=== PATIENT | female | born 1995 | race African-American/Black ===

== ENCOUNTER 2017-05-28 02:44 | Inpatient (IN) | payer MEDICAID ==
[~2017-05-28] VITALS: Ht 165.1 cm; Wt 65.8 kg
[2017-05-28] MEDS ORDERED: PRENATAL COMPLE1 TAB PO (03:24)
[2017-05-28 03:26] VITALS: BP 122/78; Ht 165.1 cm; Wt 65.8 kg
[2017-05-28 04:22] LABS: HEMOGLOBIN 12.6 g/dL (12-16); MCH 28.1 pg (26.0-34.0); MCHC 33.2 g/dL (31.0-37.0); MCV 84.8 fL (80.0-100.0); MEAN PLATELET VOLUME 11.4 fL (7.4-10.4); RBC 4.48 10x6/uL (4.00-5.40); RDW 12.6 % (11.5-14.5); WBC 9.9 10x3/uL (4.8-10.8)
[2017-05-28 04:27] LABS: APPEARANCE CLEAR (CLEAR); BILIRUBIN NEGATIVE (NEGATIVE); COLOR YELLOW (YELLOW); GLUCOSE NEGATIVE (NEGATIVE); KETONE NEGATIVE (NEGATIVE); LEUKOCYTE ESTERASE NEGATIVE (NEGATIVE); NITRITE NEGATIVE (NEGATIVE); PROTEIN NEGATIVE (NEGATIVE); RED CELLS - URINE 0-5 /hpf (0-5); SPECIFIC GRAVITY 1.015 (1.005-1.020); UROBILINOGEN NORMAL (NORMAL); WHITE CELLS - URINE 0-5 /hpf (0-5)
[2017-05-28 13:44] VITALS: BP 144/81
--- NOTE | 2017-05-28 13:47 | NUR ---
SITTING UP IN BED- IN ROOM. FAMILY IN ROOM. CO SOME SORENESS. STATES WILL TAKE A MOTRIN. SMALL TO MOD LOCHIA NOTED ON PAD.
--- NOTE | 2017-05-28 13:55 | NUR ---
JOHN BUCK CO PAIN- RATES 2 ON SCALE OF 0-10. UP TO BATHROOM. INSTRUCTED ON USE OF EPIFOAM, DERMOPLAST, TUCKS PADS. DENIES QUESTIONS.
--- NOTE | 2017-05-28 17:30 | NUR ---
UP TO SHOWER- TOLERATED WELL. FAMILY AT BEDSIDE. NO REQUESTS.
--- NOTE | 2017-05-28 18:54 | NUR ---
RESTING IN BED. REPORT TO PM SHIFT.
[2017-05-28 19:30] VITALS: BP 130/73
--- NOTE | 2017-05-28 19:34 | NUR ---
RN TO PT BS FOR FAISAL. PT AMBULATING IN ROOM PROVIDING CARE FOR . PT IN NO ACUTE DISTRESS. PT RETURNS TO BED FOR RN TO COMPLETE ASSESSMENT. PT IS A 21YO G1 NOW P1 WITH OF VIABLE FEMALE INFANT TODAY @ 0721. INFANT @ 39.1 WKS GESTATION. PT WITH 2ND DEGREE ML LACERATION AND REPAIR. AAOX3. HR REGULAR. LUNGS CTAB. ABDOMEN SOFT AND NON TENDER. FUNDUS FIRM AND ML @ U/-1. LOCHIA RUBRA SCANT. PERINIUM APPEARS TO BE INTACT WITH MINIMAL SWELLING NOTED. MENDEZ PAD AND PANTIES IN PLACE. NO SWELLING NOTED TO UPPER OR LOWER EXTREMITIES BILATERALLY. PT DENIES DIFFICULTY VOIDING. STATES SHE IS PASSING GAS BUT HAS NOT HAD A BM SINCE . PT TOLERATING REGULAR DIET WELL. 18G SL IN PLACE TO LEFT FA. FLUSHED WITH 5CC NS WITHOUT DIFFICULTY. NO REDNESS OR EDEMA NOTED TO SITE. PT C/O PAIN, RATES 2/10, REQUESTS IBUPROFEN. 1 TAB IBUPROFEN PROVIDED AT THIS TIME. PT DENIES ANY FURTHER NEEDS. BED IN LOW POSITION, SIDE RAILS UP TIMES 2, CALL LIGHT AND PHONE IN REACH. INFANT REMAINS AT PT BS FOR COUPLET CARE. SO REMAINS AT PT BS FOR SUPPORT AND ASSISTANCE. WILL CONT TO MONITOR PT STATUS.
--- NOTE | 2017-05-28 20:47 | NUR ---
RN TO PT BS TO PROVIDE 2100 DOSE OF MOM. PT AMBULATING IN ROOM CARING FOR INFANT. 2100 DOSE OF MOM PROVIDED. PT DENIES ANY FURTHER NEEDS AT THIS TIME. BED IN LOW POSITION, SIDE RAILS UP TIMES 2, CALL LIGHT AND PHONE IN REACH. INFANT REMAINS AT PT BS FOR COUPLET CARE. FAMILY TIMES 4 AT BS FOR SUPPORT AND ASSISTANCE. WILL CONT TO MONITOR PT STATUS.
--- NOTE | 2017-05-28 22:31 | NUR ---
RN TO PT BS FOR ROUNDS. PT RESTING IN BED IN HIGH FOWLERS POSITION BREAST FEEDING INFANT. PT IN NO ACUTE DISTRESS. PT DENIES ANY NEEDS AT THIS TIME. BED IN LOW POSITION, SIDE RAILS UP TIMES 2, CALL LIGHT AND PHONE IN REACH. INFANT REMAINS AT PT BS FOR COUPLET CARE. SO REMAINS AT PT BS FOR SUPPORT AND ASSISTANCE. WILL CONT TO MONITOR PT STATUS.
--- NOTE | 2017-05-29 00:15 | NUR ---
RN TO PT BS FOR ROUNDS. PT RESTING IN BED IN SEMI-FOWLERS POSITION, HOLDING , IN NO ACUTE DISTRESS. PT REQUESTS INFANT BE TRANSPORTED TO NURSERY TO ALLOW MOTHER TO REST. INFANT SWADDLED AND PLACED IN OPEN CRIB. PT DENIES ANY FURTHER NEEDS AT THIS TIME. BED IN LOW POSITION, SIDE RAILS UP TIMES 2, CALL LIGHT AND PHONE IN REACH. SO REMAINS AT PT BS FOR SUPPORT AND ASSISTANCE. WILL CONT TO MONITOR PT STATUS. INFANT TRANSPORTED TO NURSERY VIA OPEN CRIB, REPORT GIVEN TO NURSERY RN.
--- NOTE | 2017-05-29 02:37 | NUR ---
RN TO PT BS FOR ROUNDS. PT RESTING IN BED IN SEMI-FOWLERS POSITION BREAST FEEDING INFANT, PT IN NO ACUTE DISTRESS. PT C/O PAIN, RATES 3/10, REQUESTS MEDICATION. 1 TAB IBUPROFEN PROVIDED AT THIS TIME. PT DENIES ANY FURTHER NEEDS. BED IN LOW POSITION, SIDE RAILS UP TIMES 2, CALL LIGHT AND PHONE IN REACH. REMAINS AT PT BS FOR COUPLET CARE. SO REMAINS AT PT BS FOR SUPPORT AND ASSISTANCE. WILL CONT TO MONITOR PT STATUS.
[2017-05-29 05:11] LABS: HEMATOCRIT 30.6 % (36.0-48.0); MCHC 32.7 g/dL (31.0-37.0); MCV 85.7 fL (80.0-100.0); MEAN PLATELET VOLUME 11.1 fL (7.4-10.4); RDW 12.8 % (11.5-14.5)
[2017-05-29 05:18] LABS: RBC 3.57 10x6/uL (4.00-5.40); WBC 12.7 10x3/uL (4.8-10.8)
--- NOTE | 2017-05-29 05:35 | NUR ---
RN TO PT'S ROOM FOR ROUNDS. PT RESTING IN BED IN HIGH FOWLERS POSITION, WITH ASSISTANCE OF NURSERY RN. PT DENIES ANY NEEDS AT THIS TIME. BED IN LOW POSITION, SIDE RAILS UP TIMES 2, CALL LIGHT AND PHONE IN REACH. SO REMAINS AT PT BS FOR SUPPORT AND ASSISTANCE. WILL CONT TO MONITOR PT STATUS.
[2017-05-29 07:15] VITALS: BP 117/61
--- NOTE | 2017-05-29 07:15 | NUR ---
AM ASSESSMENT COMPLETED, PT DENIES NEEDS AT THIS TIME. DENIES HEAVY BLEEDING OR PASSING CLOTS. PT STATES SHE PLANS TO BE DISCHARGED HOME TODAY. SIG OTHER ASLEEP ON SOFA, IN CRIB IN ROOM AT THIS TIME. SRUP X2, CALL LIGHT AND PHONE WITHIN REACH.
--- NOTE | 2017-05-29 07:33 | OP ---
PATIENT NAME: CHARITY RODRIGUEZ MEDICAL RECORD: [id number] :95 LOCATION:[id number] ADMISSION DATE:05/28/17 SURGEON: ROBBIE YBARRA MD DATE OF OPERATION: 05/28/2017 Delivery Note Spontaneous vaginal delivery of female infant weighing 7 pounds 7 ounces, 9 and 9 Apgars, with epidural anesthesia. Second-degree midline laceration repaired using 2-0 chromic suture. The placenta was delivered spontaneously and intact. Cord pH drawn. ESTIMATED BLOOD LOSS: 400 cc. COMPLICATIONS OF DELIVERY: None. TRANSINT:[id number] Voice Confirmation ID: [id number] DOCUMENT ID: [id number] ROBBIE YBARRA MD at 0733 CC: [id number] DICTATION DATE: 05/28/17 0743 MGMT SPECIALIST: 05/28/17 0955 ADM IN [place] [id number] [place] [id number]
--- NOTE | 2017-05-29 08:24 | NUR ---
Ling Roger 05/29/17 LE@ 8:15 S: Patient states is going good. O: Patient lying on her side in bed . Observed infant latching for feeding sucking in a rocking motion, mouth 140 degrees, appears content, and body turned more upright verses tummy to tummy. FOB in room speaking with staff regarding certificate. Recommend turning baby tummy to tummy, at mother request, gently turned baby for patient. Asked Ling how is going, any problems or concerns, sore nipples? States her nipples are sore but is going great, her youngest is 6, like starting over. Observed infant removing his self-off the breast, patient nipples do look red at the tip, possible due to how infant is latching. Asked how did feeding go last night, was fed in the side lying down position? Patient states yes. Explained how to verify infant is latched correctly turn tummy to tummy, nose opposite of nipple, gently support head, and allow to self-latch. Possible reason for sore nipples is because of latch. Verifying infant is latched correctly for every feeding will prevent sore nipples, she may apply lanolin to the breast following every feeding, it is safe for to latch with lanolin on the breast. It's normal for breastfed babies to eat often, feed on demand when showing feeding cues (explained feeding cues), infant may eat every 2 hours during the day and every 3-4 hours at night. in the beginning takes time and patience in the beginning. Placing infant to the breast for every feeding will help with establishing your milk supply. Provided and explained handout on feeding cues, growth spurs, what to expect the first week, positions, waking a sleeping baby, engorgement, and benefits of skin to skin. Asked if any questions, concerns, or needs all declined, will follow up. Patient continues to work with staff member on signing certificate. A: Patient appears confident with . P: Continue to support exclusively Geronimo Trevino CLC
[2017-05-29] MEDS ORDERED: IBUPROFEN600 MG PO (08:45)
--- NOTE | 2017-05-29 09:41 | NUR ---
Ling Roger 05/29/17 LE@ 9:15 S: Patient states is going good. O: Patient walking in room, at bedside in crib. Congratulated on delivery, asked if she has any questions or concerns about ? Patient states infant prefers the left breast over the right. Recommend to try and changing infant position for feeding, offer both breast during feeding, if infant will take. Try latching on next feeding on the right breast. Explained how to verify infant is latched correctly turn tummy to tummy, nose opposite of nipple, gently support infant head, and allow infant to self-latch. Use as demonstration and allowed patient to hold infant as if she was going to attempt a feeding. It's normal for breastfed babies to eat often, feed on demand when showing feeding cues (explained feeding cues), infant may eat every 2 hours during the day and every 3-4 hours at night. in the beginning takes time and patience in the beginning. Placing infant to the breast for every feeding will help with establishing your milk supply. Provided and explained handout on feeding cues, growth spurs, what to expect the first week, positions, waking a sleeping baby, engorgement, and benefits of skin to skin. Explained growth spurs, will eat more during this time verses other, this is also normal. Asked if any questions, concerns, or needs, patient declined, thanked CLC, will follow up. Please ask for help as needed. A: Patient appears confident with , first baby. P: Continue to support exclusively JEWELL Dos Santos
--- NOTE | 2017-05-29 10:00 | NUR ---
DISCHARGE INSTRUCTIONS EXPLAINED TO PT. PT PROVIDED WITH PERIPADS/PANTIES, AND CHUX TO TAKE HOME AT HER REQUEST. PT DENIES OTHER NEEDS. SR UP X2, CALL LIGHT AND PHONE WITHIN REACH.
--- NOTE | 2017-05-29 14:20 | NUR ---
PT CALLS OUT CANCER RESEARCHER LIGHT AND STATES SHE IS READY TO GO HOME. PT TAKEN TO PRIVATE VEHICLE BY WHEELCHAIR WITH INFANT IN CAR SEAT, BY VOLUNTEER.
--- NOTE | 2017-05-29 16:35 | NUR ---
RECEIVED PT FROM VIA BED TO ROOM 1273. BED LOCKED AND PLACED IN LOW POSITION. VSS. AAO X 3. HRRR WITHOUT AUDIBLE MURMUR. BBS CLEAR. BS X 4. FUNDUS FIRM AT U/U. RUBRA LOCHIA SCANT AMT. NO CLOTS NOTED. ABDOMINAL DRESSING DRY WITHOUT DRAINAGE NOTED. NEG HOMANS' SIGN. PPP. NO EDEMA NOTED TO BLE. SCDS ON BLE. PUMP ON. SALCEDO TO GRAVITY DRAINING BLOOD-TINGED URINE. 1700 ML EMPTIED FROM SALCEDO. PIV OF NS WITH PITOCIN INFUSING AT 125 ML/HR. SITE CLEAR TO RIGHT FOREARM. BLOOD INFUSING VIA RANGER BLOOD WARMER AT SLOW RATE. PT C/O INCISIONAL PAIN OF "8" ON 0-10 PAIN SCALE. ICE PACK TO INCISION. PT ORIENTED TO ROOM, BED, AND CALL LIGHT. SR UPX 2. CALL LIGHT IN REACH.
--- NOTE | 2017-05-29 17:15 | NUR ---
BLOOD TRANSFUSION COMPLETED. NS INFUSING TO FLUSH LINE. VSS. SITE CLEAR. PT SUDHIR WELL.
--- NOTE | 2017-05-29 17:25 | NUR ---
BLOOD TUBING DISCONTINUED. PIV SITE CLEAR.
[2017-05-30 07:22] LABS: RAPID PLASMA REAGIN Non Reactive (Non Reactive)
== END 2017-05-29 18:00 | disposition home or self-care (01) | DRG 775 ==
LOC: D.LDO 02:44 → D.LD 02:52
PROVIDERS: ADMIT Obstetrics & Gynecology
PROC: 10E0XZZ Delivery of Products of Conception, External Approach (ICD-10-PCS; principal; 2017-05-28)
PROC: 0KQM0ZZ Repair Perineum Muscle, Open Approach (ICD-10-PCS; 2017-05-28)
DX: O70.1 Second degree perineal laceration during delivery (principal); Z37.0 Single live birth; Z3A.39 39 weeks gestation of pregnancy